=== PATIENT | female | born 1985 | race African-American/Black ===

== ENCOUNTER 2016-09-22 16:07 | Emergency (ER) | payer MEDICAID, OTHER ==
[~2016-09-22] VITALS: Ht 172.7 cm; Wt 50.0 kg
[~2016-09-22 16:07] MED LIST: FERR324T8 PO; LACTATED RINGER'S 1000 ML INJ 1,000 ML IV ONE; ONDANSETRON HCL 4 MG/2 ML VIAL IV PUSH ONE; PROPOFOL 200 MG/20 ML AMP IV ONE; PROZ20CA11 PO; SUGAMMADEX SODIUM 200 MG/2 ML VIAL IV PUSH ONE; ceFAZolin INJ 1,000 MG VIAL IV ONE; ePHEDrine/NS 50 MG/5 ML SYR IV ONE
[2016-09-22 16:10] VITALS: BP 164/90; PULSE 90; RESP 18; TEMP 98.1; O2SAT 100
--- NOTE | 2016-09-22 18:24 | PD ---
HPI Chief Complaint: Repairer General Problem/Complaint Time Seen by Provider: 18:23 Travel History International Travel<30 days: No Contact w/Intl Traveler<30days: No Traveled to known affect area: No History of Present Illness HPI 31-year-old female with no significant medical history, presents to emergency department for acute onset lower abdominal pain today. Pain is sharp, stabbing , and in her lower abdomen. Patient has history of tubal ligation 3 years ago but has had 2 positive tests. Her last menstrual cycle was August. patient was at her place of work in the advised her to come to the emergency department. Patient denies any vaginal discharge or bleeding. No urinary symptoms. She has had low-grade fever and chills. Patient has been nauseous without vomiting. No chest pain or tightness. No cough or chest congestion. She has no other symptoms to report. PFSH Past Medical History Medical History: Denies Significant Hx Hypertension: Yes (WITH ) Immunizations Current: No ?: LMP: 08/18/16 : 3 Para: 3 Tubal Ligation: Yes Past Surgical History Section: Yes (X 1 11/21/2011) Gynecologic Surgery: Yes ( ) Social History Alcohol Use: No Tobacco Use: Yes (PACK EVERY 2-3 DAYS) Substance Use: No Allergies-Medications (Allergen,Severity, Reaction): Coded Allergies: No Known Allergies (Verified , 10/21/15) Reported Meds & Prescriptions Reported Meds & Active Scripts Active Ferrous Fumarate 324 (Ferrous Fumarate) 324 Mg Tab 325 Mg PO DAILY Prozac (Fluoxetine HCl) 20 Mg Cap 20 Mg PO DAILY Review of Systems Except as stated in HPI: all other systems reviewed are Neg Physical Exam Narrative GENERAL: Well-nourished female patient, in no acute distress SKIN: Warm and dry. HEAD: Atraumatic. Normocephalic. EYES: Pupils equal and round. No scleral icterus. No injection or drainage. ENT: No nasal bleeding or discharge. Mucous membranes pink and moist. NECK: Trachea midline. No JVD. CARDIOVASCULAR: Regular rate and rhythm. No murmur appreciated. RESPIRATORY: No accessory muscle use. Clear to auscultation. Breath sounds equal bilaterally. GASTROINTESTINAL: Abdomen soft, nondistended, lower abdominal tenderness to palpation, greater on the right than the left however it does extend across the lower abdomen. Hepatic and splenic margins not palpable. MUSCULOSKELETAL: No obvious deformities. No clubbing. No cyanosis. No edema. NEUROLOGICAL: Awake and alert. No obvious cranial nerve deficits. Motor grossly within normal limits. Normal speech. PSYCHIATRIC: Appropriate mood and affect; insight and judgment normal. Data Data Last Documented VS Vital Signs Date Time Temp Pulse Resp B/P Pulse Ox O2 Delivery O2 Flow Rate FiO2 09/22/16 16:10 98.1 90 18 164/90 100 Orders Basic Metabolic Panel (Bmp) (09/22/16 18:26) Beta Hcg (Quant/Titer) (09/22/16 18:26) Complete Blood Count With Diff (09/22/16 18:26) Prothrombin Time / Inr (Pt) (09/22/16 18:26) Act Partial Throm Time (Ptt) (09/22/16 18:26) Urinalysis - C+S If Indicated (09/22/16 18:26) Ed Urine Pregnancytest Poc (09/22/16 18:26) Us Pelvis (Ques Preg/Ectopic) (09/22/16 ) Labs Laboratory Tests Test 09/22/16 09/22/16 18:35 18:46 White Blood Count 6.0 TH/MM3 Red Blood Count 3.92 MIL/MM3 Hemoglobin 11.3 GM/DL Hematocrit 33.9 % Mean Corpuscular Volume 86.5 FL Mean Corpuscular Hemoglobin 28.8 PG Mean Corpuscular Hemoglobin 33.3 % Concent Red Cell Distribution Width 16.3 % Platelet Count 199 TH/MM3 Mean Platelet Volume 7.8 FL Neutrophils (%) (Auto) 63.2 % Lymphocytes (%) (Auto) 27.3 % Monocytes (%) (Auto) 8.3 % Eosinophils (%) (Auto) 0.8 % Basophils (%) (Auto) 0.4 % Neutrophils # (Auto) 3.8 TH/MM3 Lymphocytes # (Auto) 1.6 TH/MM3 Monocytes # (Auto) 0.5 TH/MM3 Eosinophils # (Auto) 0.0 TH/MM3 Basophils # (Auto) 0.0 TH/MM3 CBC Comment DIFF FINAL Differential Comment Prothrombin Time 10.9 SEC Prothromb Time International 1.0 RATIO Ratio Activated Partial 27.7 SEC Thromboplast Time Sodium Level 140 MEQ/L Potassium Level 3.2 MEQ/L Chloride Level 107 MEQ/L Carbon Dioxide Level 25.1 MEQ/L Anion Gap 8 MEQ/L Blood Urea Nitrogen 10 MG/DL Creatinine 0.63 MG/DL Estimat Glomerular Filtration 132 ML/MIN Rate Random Glucose 88 MG/DL Calcium Level 8.3 MG/DL Human Chorionic Gonadotropin, 1511 MIU/ML Quant Urine Color YELLOW Urine Turbidity HAZY Urine pH 6.0 Urine Specific [place] 1.026 Urine Protein NEG mg/dL Urine Glucose (UA) NEG mg/dL Urine Ketones NEG mg/dL Urine Occult Blood NEG Urine Nitrite NEG Urine Bilirubin NEG Urine Urobilinogen LESS THAN 2.0 MG/DL Urine Leukocyte Esterase NEG Urine RBC 2 /hpf Urine WBC 2 /hpf Urine Squamous Epithelial 6 /hpf Cells Urine Mucus FEW /lpf Microscopic Urinalysis Comment CULT NOT INDICATED MDM Medical Decision Making Medical Screen Exam Complete: Yes Emergency Medical Condition: Yes Medical Record Reviewed: Yes Differential Diagnosis Ectopic versus intrauterine versus carcinoma Narrative Course 31-year-old female presents to the emergency department for evaluation of lower abdominal pain and positive test despite tubal ligation. Patient appears overall well. She does have lower abdominal tenderness to palpation, greater on the right than the left. Workup is initiated in the triage. 1924 CBC has resulted without leukocytosis. Mild anemia with a hemoglobin of 11.3. CMP is with hypokalemia 3.2. Beta hCG is 1151. I have contacted ultrasound at this time with urgency for further evaluation of possible ectopic. 1954 I have called ultrasound again requesting that the ultrasound for evaluation of possible ectopic be done as soon as possible and I'm told that it will be at least 15 more minutes. I stressed the urgency and importance of ruling this out or in. They verbalized understanding. 2004 US is at bedside 2034 medical delivery technician comes out and is concerned about the amount of free fluid identified on ultrasound. I have requested a medical bed as soon as possible for this patient. She is getting in contact with her radiologist to read the ultrasound as soon as possible. Diagnosis Primary Impression: Abdominal pain Qualified Code: R10.30 - Lower abdominal pain Additional Impression: Positive blood test Condition: Stable Jaimee Curry SHORTY Sep 22, 2016 18:24
[2016-09-22 18:58] LABS: AUTOMATED NEUTROPHIL # 3.8 TH/MM3 (1.8-7.7); BASOPHIL % 0.4 % (0.0-2.0); EOSINOPHIL % 0.8 % (0.0-4.0); HEMATOCRIT 33.9 % (35.0-46.0); HEMO FLAGS DIFF FINAL; LYMPH % 27.3 % (9.0-44.0); LYMPHOCYTE # 1.6 TH/MM3 (1.0-4.8); MEAN CELL VOLUME 86.5 FL (80.0-100.0); MEAN CORPUSCULAR HEMOGLOBIN 28.8 PG (27.0-34.0); MEAN CORPUSCULAR HGB CONC 33.3 % (32.0-36.0); MONO % 8.3 % (0.0-8.0); NEUT % 63.2 % (16.0-70.0); PLATELET COUNT 199 TH/MM3 (150-450); RED BLOOD COUNT 3.92 MIL/MM3 (4.00-5.30); RED CELL DISTRIBUTION WIDTH 16.3 % (11.6-17.2)
[2016-09-22 19:05] LABS: APTT (PATIENT) 27.7 SEC (24.3-30.1); PROTHROMBIN TIME - PATIENT 10.9 SEC (9.8-11.6)
[2016-09-22 19:10] LABS: BICARBONATE 25.1 MEQ/L (21.0-32.0); POTASSIUM 3.2 MEQ/L (3.5-5.1)
[2016-09-22 19:25] LABS: BLOOD, URINE NEG (NEG); COMMENT (UR) CULT NOT INDICATED; CULTURE IF INDICATED CULT NOT INDICATED; GLUCOSE,URINE NEG (NEG); KETONE, URINE NEG (NEG); MUCUS URINE FEW /lpf (OCC); NITRITE,URINE NEG (NEG); SQUAMOUS EPITHELIAL CELL URINE 6 /hpf (0-5); URINE COLOR YELLOW (YELLW/STRAW)
[2016-09-22] MEDS ORDERED: SODIUM CHLOR 0.9% 1000 ML INJ 1,000 ML IV ONE (21:00)
--- NOTE | 2016-09-22 21:09 | RADRPT ---
EXAM DATE/TIME: 09/22/2016 20:00 [facility] COMPARISON: No previous studies available for comparison. INDICATIONS : History of tubal ligation with positive . LAB(S): Beta-hC MEDICAL HISTORY : . Hypertension. SURGICAL HISTORY : section. Tubal ligation. ENCOUNTER: Initial ACUITY: 1 day PAIN SCORE: 10/10 LOCATION: Bilateral pelvis MEASUREMENTS: UTERUS: 7.6 x 5.9 x 4.8 x cm ENDOMETRIAL STRIPE: 17 mm RIGHT OVARY: 5.3 x 3.7 x 5.6 cm LEFT OVARY: 2.6 x 2.2 x 2.6 cm FINDINGS: Endometrium is thickened at approximately 17 mm. No yolk sac, gestational sac or pole seen. No fluid seen within the uterine cavity. Complex cystic area with hyperemia seen of the right ovary, measures at least 2.8 x 3.4 cm in size. T he main cystic portion measures about 2.7 cm. No yolk sac or pole demonstrated. The the left ov monica is within normal limits. Moderate amount of fluid and debris seen in the pelvic cul-de-sac and th e rest of the pelvic cavity. CONCLUSION: 1. Complex cystic mass of the right ovary and moderate fluid/hemorrhage in the pelvic cavity with susan vated beta hCG of concern for a ruptured right ovarian ectopic . 2. Other than endometrial thickening, the uterus is within normal limits. No intrauterine d emonstrated or fluid/blood in the cavity. 3. Left ovary within normal limits. Dio Mesa MD on September 22, 2016 at 21:02 Board Certified Radiologist. This report was verified electronically.
[2016-09-22 21:20] VITALS: BP 150/62; PULSE 84; RESP 22; O2SAT 99
--- NOTE | 2016-09-22 21:24 | PD ---
Physical Exam Date Seen by Provider: Sep 22, 2016 Time Seen by Provider: 21:21 Narrative 31-year-old female came to the emergency room with history of lower abdominal pain. Patient has had tubal ligation but she did a home test that came positive twice. Because of that and the abdominal pain she decided to come to the emergency room. She was in the waiting room and was seen by the nurse practitioner who had started the workup. Her beta hCG Quant was elevated and the pelvic ultrasound showed moderate amount of fluid/hemorrhage with a complex mass in her right ovary with a possibility of ruptured ectopic. I ordered a liter of IV fluid bolus and spoke with the patient and her regarding the diagnosis. Patient is noticeably upset and very emotional about it. I spoke with the OB hospitalist Dr. Zamora who is currently here seeing the patient. Patient will be going to the OR. Patient is hemodynamically stable. I asked her regarding her pain status and she refused any pain medications. Patient has been admitted to Dr. Abreu as per Dr. Zamora. Data Data Last Documented VS Vital Signs Date Time Temp Pulse Resp B/P Pulse Ox O2 Delivery O2 Flow Rate FiO2 09/22/16 21:20 84 22 150/62 99 Room Air 09/22/16 16:10 98.1 Orders Basic Metabolic Panel (Bmp) (09/22/16 18:26) Beta Hcg (Quant/Titer) (09/22/16 18:26) Complete Blood Count With Diff (09/22/16 18:26) Prothrombin Time / Inr (Pt) (09/22/16 18:26) Act Partial Throm Time (Ptt) (09/22/16 18:26) Urinalysis - C+S If Indicated (09/22/16 18:26) Ed Urine Pregnancytest Poc (09/22/16 18:26) Us Pelvis (Ques Pr/Ect)W Trans (09/22/16 ) Type And Screen (09/22/16 20:42) Complete Rh (09/22/16 20:42) Sodium Chlor 0.9% 1000 Ml Inj (Ns 1000 M (09/22/16 21:00) Consult Gynecology (09/22/16 ) (Hub Use Only)Inp Phy Cons/Ref (09/22/16 ) Labs Laboratory Tests Test 09/22/16 09/22/16 09/22/16 18:35 18:46 21:11 White Blood Count 6.0 TH/MM3 Red Blood Count 3.92 MIL/MM3 Hemoglobin 11.3 GM/DL Hematocrit 33.9 % Mean Corpuscular Volume 86.5 FL Mean Corpuscular Hemoglobin 28.8 PG Mean Corpuscular Hemoglobin 33.3 % Concent Red Cell Distribution Width 16.3 % Platelet Count 199 TH/MM3 Mean Platelet Volume 7.8 FL Neutrophils (%) (Auto) 63.2 % Lymphocytes (%) (Auto) 27.3 % Monocytes (%) (Auto) 8.3 % Eosinophils (%) (Auto) 0.8 % Basophils (%) (Auto) 0.4 % Neutrophils # (Auto) 3.8 TH/MM3 Lymphocytes # (Auto) 1.6 TH/MM3 Monocytes # (Auto) 0.5 TH/MM3 Eosinophils # (Auto) 0.0 TH/MM3 Basophils # (Auto) 0.0 TH/MM3 CBC Comment DIFF FINAL Differential Comment Prothrombin Time 10.9 SEC Prothromb Time International 1.0 RATIO Ratio Activated Partial 27.7 SEC Thromboplast Time Sodium Level 140 MEQ/L Potassium Level 3.2 MEQ/L Chloride Level 107 MEQ/L Carbon Dioxide Level 25.1 MEQ/L Anion Gap 8 MEQ/L Blood Urea Nitrogen 10 MG/DL Creatinine 0.63 MG/DL Estimat Glomerular Filtration 132 ML/MIN Rate Random Glucose 88 MG/DL Calcium Level 8.3 MG/DL Human Chorionic Gonadotropin, 1511 MIU/ML Quant Urine Color YELLOW Urine Turbidity HAZY Urine pH 6.0 Urine Specific [place] 1.026 Urine Protein NEG mg/dL Urine Glucose (UA) NEG mg/dL Urine Ketones NEG mg/dL Urine Occult Blood NEG Urine Nitrite NEG Urine Bilirubin NEG Urine Urobilinogen LESS THAN 2.0 MG/DL Urine Leukocyte Esterase NEG Urine RBC 2 /hpf Urine WBC 2 /hpf Urine Squamous Epithelial 6 /hpf Cells Urine Mucus FEW /lpf Microscopic Urinalysis Comment CULT NOT INDICATED Blood Type A POSITIVE Rho(D) Type POSITIVE Antibody Screen NEGATIVE MDM Supervised Visit with ADELAIDA: Yes Critical Care Narrative Aggregate critical care time was 30 minutes. Time to perform other separately billable procedures was not included in the critical care time. My time did not include minutes spent treating any other patients simultaneously or on activities that did not directly contribute to the patient's treatment. The services I provided to this patient were to treat and/or prevent clinically significant deterioration that could result in: Acute ectopic I provided critical care services requiring my management, as noted below: Chart data review, documentation time, medication orders and management, vital sign assessments/reviewing monitor data, ordering and reviewing lab tests, ordering and interpreting/reviewing x-rays and diagnostic studies, care of the patient and discussion of the patient with the admitting physicians. Physician Communication Physician Communication Dr. Zamora Diagnosis Primary Impression: Ruptured ectopic Admitting Information Admitting Physician Requests: Admit Scripts Ondansetron (Zofran)4 Mg Tab4 Mg PO Q6HR PRN (NAUSEA OR VOMITING) #12 TAB Ref 0 Prov:Barbara Abreu MD 09/23/16 Condition: Stable Pedro Ballard MD Sep 22, 2016 21:24
[2016-09-22] MEDS ORDERED: MORPHINE SULFATE 4 MG/ML INJ IV PUSH ONE (21:45)
[2016-09-22] MEDS ORDERED: ONDANSETRON HCL 4 MG/2 ML VIAL IV PUSH ONE (21:45)
--- NOTE | 2016-09-22 22:00 | HHI.HP ---
HPI Chief Complaint abdominal pain Date Seen: Sep 22, 2016 Travel History International Travel<30 Days: No Contact w/Intl Traveler<30Days: No Known Affected Area: No History of Present Illness HPI Patient is 31-year-old black female previous 1 and tubal ligation presents with positive test severe abdominal pain. She did not know she was until coming to the emergency room she had no problems until today when she began having abdominal pain is steadily worsened and became is she describes it unbearable over the last few hours and is mainly right sided but it goes across the lower abdomen. Denies vaginal bleeding Para: 3 : 4 History Past Medical History Narrative Medical She has a history of depression and is been on Prozac in the past History of hypertension not on medication at this time Obstetric History Obstetric History previous 1 ,.first 2 were vaginal deliveries , she had her tubes tied with a Past Surgical History Narrative Surgical previous with her last baby with tubal ligation States she's had a laparoscopic surgery done in the past Family History Family History: Negative Social History Alcohol Use: Yes Tobacco Use: Yes Substance Abuse: No Allergies-Medications (Allergen,Severity, Reaction): Coded Allergies: No Known Allergies (Verified , 10/21/15) Home Meds Active Scripts Ferrous Fumarate (Ferrous Fumarate 324)324 Mg Cjy450 Mg PO DAILY #90 TAB Ref 0 Prov:Rainer Mcclain MD 10/21/15 Fluoxetine Hcl (Prozac)20 Mg Cap20 Mg PO DAILY #90 CAP Ref 0 Prov:Rainer Mcclain MD 10/07/15 Review of Systems Gastrointestinal: Abdominal Pain Physical Exam Narrative GENERAL: Well-nourished, well-developed patient. In moderate distress SKIN: Warm and dry. HEAD: Normocephalic and atraumatic. EYES: No scleral icterus. No injection or drainage. ENT: No nasal drainage noted. Mucous membranes pink. Airway patent. NECK: Supple, trachea midline. No JVD. CARDIOVASCULAR: Regular rate and rhythm without murmurs, gallops, or rubs. RESPIRATORY: Breath sounds equal bilaterally. No accessory muscle use. BREASTS: Bilateral exam showed no masses , no retractions, no nipple discharge. ABDOMEN/GI: Abdomen firm,3+ tender in the right lower quadrant and 2+ tender left lower quadrant, minimal pain in the upper quadrants, bowel sounds present, + rebound in the right lower quadrant, + guarding + CMT, 3+ PAIN R>L EXTREMITIES: No cyanosis or edema. BACK: Nontender without obvious deformity. No CVA tenderness. NEUROLOGICAL: Awake and alert. Motor and sensory grossly within normal limits. Five out of 5 muscle strength in all muscle groups. Normal speech. Data Data Orders Basic Metabolic Panel (Bmp) (09/22/16 18:26) Beta Hcg (Quant/Titer) (09/22/16 18:26) Complete Blood Count With Diff (09/22/16 18:26) Prothrombin Time / Inr (Pt) (09/22/16 18:26) Act Partial Throm Time (Ptt) (09/22/16 18:26) Urinalysis - C+S If Indicated (09/22/16 18:26) Ed Urine Pregnancytest Poc (09/22/16 18:26) Us Pelvis (Ques Pr/Ect)W Trans (09/22/16 ) Type And Screen (09/22/16 20:42) Complete Rh (09/22/16 20:42) Sodium Chlor 0.9% 1000 Ml Inj (Ns 1000 M (09/22/16 21:00) Consult Gynecology (09/22/16 ) (Hub Use Only)Inp Phy Cons/Ref (09/22/16 ) Admit Order (Ed Use Only) (09/22/16 21:19) Morphine Inj (Morphine Inj) (09/22/16 21:45) Ondansetron Inj (Zofran Inj) (09/22/16 21:45) Labs Laboratory Tests Test 09/22/16 09/22/16 09/22/16 18:35 18:46 21:11 White Blood Count 6.0 Red Blood Count 3.92 Hemoglobin 11.3 Hematocrit 33.9 Mean Corpuscular Volume 86.5 Mean Corpuscular Hemoglobin 28.8 Mean Corpuscular Hemoglobin 33.3 Concent Red Cell Distribution Width 16.3 Platelet Count 199 Mean Platelet Volume 7.8 Neutrophils (%) (Auto) 63.2 Lymphocytes (%) (Auto) 27.3 Monocytes (%) (Auto) 8.3 Eosinophils (%) (Auto) 0.8 Basophils (%) (Auto) 0.4 Neutrophils # (Auto) 3.8 Lymphocytes # (Auto) 1.6 Monocytes # (Auto) 0.5 Eosinophils # (Auto) 0.0 Basophils # (Auto) 0.0 CBC Comment DIFF FINAL Differential Comment Prothrombin Time 10.9 Prothromb Time International 1.0 Ratio Activated Partial 27.7 Thromboplast Time Sodium Level 140 Potassium Level 3.2 Chloride Level 107 Carbon Dioxide Level 25.1 Anion Gap 8 Blood Urea Nitrogen 10 Creatinine 0.63 Estimat Glomerular Filtration 132 Rate Random Glucose 88 Calcium Level 8.3 Human Chorionic Gonadotropin, 1511 Quant Urine Color YELLOW Urine Turbidity HAZY Urine pH 6.0 Urine Specific [place] 1.026 Urine Protein NEG Urine Glucose (UA) NEG Urine Ketones NEG Urine Occult Blood NEG Urine Nitrite NEG Urine Bilirubin NEG Urine Urobilinogen LESS THAN 2.0 Urine Leukocyte Esterase NEG Urine RBC 2 Urine WBC 2 Urine Squamous Epithelial 6 Cells Urine Mucus FEW Microscopic Urinalysis Comment CULT NOT INDICATED Blood Type A POSITIVE Rho(D) Type POSITIVE Assessment/Plan Assessment and Plan Patient is 31-year-old black female previous 1 with tubal ligation now presenting with positive tests, empty uterus, quantitative hCG is 1500 and ultrasound shows copious free fluid in abdomen with a right sided mass consistent with blood clot and tissue. This is consistent with a ruptured ectopic on the right side Plan is to take the patient operating room for laparoscopy and probable right salpingectomy and the consent form is signed and the patient understands risk and benefits of the procedure. Dr Abreu will take the patient operating room as she is [employer] back up., this case been discussed with her at length Janes Zamora II, MD Sep 22, 2016 22:00
--- NOTE | 2016-09-22 22:24 | PD.OP ---
Operative Report Date of Surgery: Sep 22, 2016 Preoperative Diagnosis: (1) History of bilateral tubal ligation (2) Positive blood test (3) Acute pelvic pain, female (4) Ruptured ectopic Postoperative Diagnosis: (1) History of bilateral tubal ligation (2) Ovarian cyst, right (3) Acute pelvic pain, female (4) Ruptured ectopic Procedure: 1. laparoscopic removal of ectopic -- ovarian ectopic vs pelvic ectopic 2. laparoscopic removal of right distal fallopian tube 3. laparoscopic right oophorectomy with large, complex cysts Anesthesia: General Surgeon: Barbara Abreu Marker Shipments(s): Staff Operation and Findings: IVF: 1 liter of LR + IV antibiotics given prior to surgery UO: 300 ml of clear yellow urine EBL: <25 ml during surgery + about 200 ml in the posterior cul de sac Findings: 1. enlarged uterus 2. pelvic adhesions 3. two large right ovarian cysts (one looked complex) 4. normal fallopian tubes bilaterally 5. normal left ovary 6. large amount of blood in pelvis Complications: none Condition: stable Disposition: PACU Description of procedure: I discussed the risks, benefits and alternatives of the procedure with the patient. Her questions were answered, informed consent was signed, the patient verbalized understanding. She was then taken to the operating room with her IV running, was placed in the supine position and was given general anesthesia without difficulties or complications.The patient was then placed in the dorsal lithotomy position and was prepped and draped in the usual sterile fashion. Attention was first turned to the patient's pelvic area. A bivalved speculum was introduced inside the patient's vagina. The anterior aspect of the cervix was grasped with a single tooth tenaculum for manipulation. A uterine manipulator was carefully introduced inside the uterus. The surgeon changed gloves and attention was then turned to the patient's abdomen. A vertical umbilical incision was made with the scalpel. A 5 mm trocar with introduced inside the patient's abdomen under direct visualization. A pneumo-peritoneum was created with CO2 gas. Large pockets of blood were noted in the abdomen and pelvis. Two 5 mm trocars were introduced inside the patient' s abdomen under direct visualization in the lower left and right abdomen. A survey of the patient's abdomen revealed normal anatomy with adhesions involving the abdominal wall and large bowel. A survey of the patient's pelvis revealed an enlarged spongy uterus and the findings noted above. Pelvic adhesions were also noted and lysed. Suction and irrigation were needed to clear the pelvis of the blood. The fallopian tubes were intact and showed the surgical ligation done in the past. The ectopic was ruptured but not actively bleeding at time of surgery. The right infundibulopelvic ligament was serially electrocauterized and cut with the harmonic scalpel. Good hemostasis was noted. The distal part of the right fallopian tube was also carefully removed. Excellent hemostasis was noted. The specimens were placed inside an endo bag and were sent to pathology. Copious irrigation was done over all the surgical sites. All surgical sites were noted to be hemostatic. All instruments were removed from patient's abdomen. The trocars were removed under direct visualization and the sites were noted to be hemostatic. The CO2 gas was carefully expressed out of the patient's abdomen. The subcutaneous tissues were injected with 0.5 % Marcaine. The skin incisions were reapproximated with subcutaneous stitches using 4-0 Vicryl. Mastisol and steri strips were placed over the incisions. After the abdominal incisions were closed, attention was turned to the pelvic area. A bivalve speculum was placed inside the patient's vagina. Good hemostasis was noted. The uterine manipulator and speculum were removed. The patient tolerated the procedure well. She was successfully extubated and transferred to PACU in stable condition Note: I discussed the surgical findings and surgical procedure were patient's . His questions were answered. He verbalized understanding and agreement to the procedures done. . Barbara Abreu MD Sep 22, 2016 22:24
--- NOTE | 2016-09-22 22:26 | HHI.DS ---
Discharge Summary Admission Date Sep 22, 2016 at 21:21 Admitting Diagnosis ruptured ectopic CBC/BMP: 09/22/16 1835 09/22/16 1835 Significant Findings Laboratory Tests Test 09/22/16 09/22/16 18:35 18:46 Red Blood Count 3.92 MIL/MM3 (4.00-5.30) Hemoglobin 11.3 GM/DL (11.6-15.3) Hematocrit 33.9 % (35.0-46.0) Monocytes (%) (Auto) 8.3 % (0.0-8.0) Potassium Level 3.2 MEQ/L (3.5-5.1) Calcium Level 8.3 MG/DL (8.5-10.1) Human Chorionic Gonadotropin, 1511 MIU/ML Quant (0-5) Urine Turbidity HAZY (CLEAR) Urine Mucus FEW /lpf (OCC) Pt Condition on Discharge: Stable Discharge Disposition: Discharge Home Discharge Instructions DIET: Follow Instructions for: As Tolerated, No Restrictions Speech Therapy-Diet Recommends: Regular Additional Diet Instructions: increase water intake Activities you can perform: Non Weight Bearing, Shower Only-No Bath, Pelvic Rest Activities to Avoid: Lifting/Bending, Weight Bearing, Prolonged Standing, Strenuous Activity, Bathing, Driving, Sexual Activity Additional Information follow up in office in 1 week Barbara Abreu MD Sep 22, 2016 22:26
[2016-09-22] MEDS ORDERED: ceFAZolin 2 GM PREMIX 50 ML IV SCH (22:30)
[2016-09-22] MEDS ORDERED: metroNIDAZOLE 500 MG INJ 100 ML IV SCH (22:30)
[2016-09-22] MEDS ORDERED: BUPIVACAINE HCL PF 0.5% 30 ML VIAL ONE (22:42)
[2016-09-22] MEDS ORDERED: METOCLOPRAMIDE HCL 10 MG/2 ML VIAL ONE (23:18)
[2016-09-22] MEDS ORDERED: ACETAMINOPHEN 1000 MG/100 ML VIAL IV ONE (23:33)
[2016-09-22] MEDS ORDERED: DICLOFENAC SODIUM 37.5 MG/ML VIAL IV PUSH ONE (23:33)
[2016-09-23] MEDS ORDERED: ONDANSETRON HCL 4 MG/2 ML VIAL IV PRN (00:45)
[2016-09-23] MEDS ORDERED: HYDROmorphone HCL PF 1 MG/ML VIAL IV PRN (00:45)
[2016-09-23] MEDS ORDERED: Post-op Orders (for Pharmacy) MISC XX ONE (00:45)
[2016-09-23] MEDS ORDERED: LACTATED RINGER'S 1000 ML INJ 1,000 ML IV SCH (00:45)
[2016-09-23] MEDS ORDERED: diphenhydrAMINE HCL 25 MG CAP PO PRN (00:45)
[2016-09-23] MEDS ORDERED: SODIUM CHLORIDE 0.9% FLUSH 5 ML FLUSH IVF SCH (00:45)
[2016-09-23] MEDS ORDERED: oxyCODONE/ACETAMINOPHEN 5 MG/325 MG TAB PO PRN ×2 (00:45)
[2016-09-23] MEDS ORDERED: SODIUM CHLORIDE 0.9% FLUSH 5 ML FLUSH IVF PRN (00:45)
[2016-09-23] MEDS ORDERED: KETOROLAC TROMETHAMINE 30 MG/ML (IVP) VIAL IVP PRN (00:45)
[2016-09-23] MEDS ORDERED: MIDAZOLAM HCL 2 MG/2 ML VIAL ONE (00:49)
[2016-09-23] MEDS ORDERED: fentaNYL CITRATE 250 MCG/5 ML AMP ONE (00:49)
[2016-09-23] MEDS ORDERED: *MEPERIDINE 25 MG INJ VIAL PERIprocedural Use ONLY ONE (00:51)
[2016-09-23] MEDS ORDERED: ZOFR4TAB PO (00:59)
[2016-09-23] MEDS ORDERED: DO NOT ADM ANY ANTICOAGULANT DRUGS XX PRN (01:00)
--- NOTE | 2016-09-23 01:01 | HHI.DS ---
Admission Date Sep 22, 2016 at 21:21 Discharge Date: Sep 23, 2016 Admitting Diagnosis ruptured ectopic Diagnosis: Brief History Patient is 31-year-old black female previous 1 and tubal ligation presents with positive test severe abdominal pain. She did not know she was until coming to the emergency room she had no problems until today when she began having abdominal pain is steadily worsened and became is she describes it unbearable over the last few hours and is mainly right sided but it goes across the lower abdomen. Denies vaginal bleeding Hospital Course Patient was admitted through the ED for surgical treatment of ruptured ectopic Pt Condition on Discharge: Stable Discharge Disposition: Discharge Home Discharge Instructions Diet Instructions: As Tolerated, No Restrictions Additional Diet Instructions: increase water intake Activities You Can Perform: Non Weight Bearing, Shower Only-No Bath, Pelvic Rest Activities to Avoid: Lifting/Bending, Weight Bearing, Prolonged Standing, Strenuous Activity, Bathing, Driving, Sexual Activity Barbara Abreu MD Sep 23, 2016 01:01
[2016-09-23] MEDS ORDERED: OXYC1TAB63 PO (01:05)
[2016-09-23 01:45] VITALS: BP 140/85; PULSE 69; RESP 15; TEMP 94.5; O2SAT 100
== END 2016-09-23 02:00 | disposition home or self-care (01) ==
LOC: NETRI 16:07 → NEDA 21:21 → UNDOADMIN 21:21 → NEPC 09-23 02:00 → HPAC 09-23 07:20 → NEDA 09-23 07:20 → HSDI 09-23 07:21 → HPAC 09-23 07:21
DX: O00.20 Ovarian pregnancy without intrauterine pregnancy (principal); R10.2 Pelvic and perineal pain; Z3A.00 Weeks of gestation of pregnancy not specified; Z98.51 Tubal ligation status
CPT/HCPCS: 00840; 59151; 76700; 76817; 80048; 81001; 84702; 84703; 85025; 85610; 85730; 86850; 86900; 86901; 88305; 99291; J0131; J0690; J1130; J2175; J2250; J2270; J2405; J2765; J3010; J7030; J7120